=== PATIENT | female | born 1950 | race Two or more races ===

== ENCOUNTER 2020-02-25 08:05 | Inpatient (IN) | payer MEDICARE, OTHER ==
[2020-02-21 08:26] LABS: BASOPHILS % (AUTO) 1.5 % (0.0-2.0); EOSINOPHILS % (AUTO) 1.1 % (0.0-3.0); HEMATOCRIT 40.5 % (37.0-47.0); HEMOGLOBIN 13.7 G/DL (12.0-16.0); LYMPHOCYTES % (AUTO) 29.7 % (20.0-45.0); MEAN CORPUSCULAR VOLUME 84 FL (80-99); MONOCYTES % (AUTO) 5.6 % (1.0-10.0); NEUTROPHILS % (AUTO) 62.1 % (45.0-75.0); PLATELET COUNT 252 K/UL (150-450); RED BLOOD COUNT 4.81 M/UL (4.20-5.40); RED CELL DISTRIBUTION WIDTH 14.4 % (11.6-14.8); WHITE BLOOD COUNT 6.9 K/UL (4.8-10.8)
[2020-02-21 08:35] LABS: ANION GAP 7 mmol/L (5-15); BLOOD UREA NITROGEN 13 mg/dL (7-18); CALCIUM 8.6 MG/DL (8.5-10.1); CARBON DIOXIDE 28 MMOL/L (21-32); CHLORIDE 104 MMOL/L (98-107); CREATININE 0.6 MG/DL (0.55-1.30); POTASSIUM 4.9 MMOL/L (3.5-5.1); SODIUM 138 MMOL/L (136-145)
[2020-02-21 08:38] LABS: INR 0.9 (0.9-1.1)
[2020-02-21 08:40] LABS: APPEARANCE,URINE SLIGHTLY CLOUDY; BILIRUBIN, URINE NEGATIVE (NEGATIVE); COLOR,URINE PALE YELLOW; GLUCOSE, URINE (UA) NEGATIVE (NEGATIVE); KETONES,URINE NEGATIVE (NEGATIVE); LEUKOCYTE ESTERASE ,URINE 3+ (NEGATIVE); NITRITE,URINE NEGATIVE (NEGATIVE); PH,URINE 8 (4.5-8.0); PROTEIN,URINE NEGATIVE (NEGATIVE); UROBILINOGEN,URINE NORMAL MG/DL (0.0-1.0)
--- NOTE | 2020-02-21 14:21 | Diagnostic Imaging Report ---
Indication: Shortness of breath Technique: Single AP view of the chest. Comparison: None. Findings: The cardiomediastinal silhouette is within normal limits. No airspace consolidation, pneumothorax, or pleural fluid. There are degenerative changes of the shoulder joints bilaterally. There is a 3 to 4 mm rounded density projecting over the right midlung. There are multilevel discogenic degenerative changes of the visualized spine. IMPRESSION: Rounded density projecting in the right midlung which may represent calcified granuloma or may be extrapulmonary but pulmonary nodule cannot be excluded. Comparison with prior chest radiograph is or interval follow-up is recommended.
--- NOTE | 2020-02-24 11:00 | Pre-op HX & Phy Repo 2 SIG ---
DATE OF ADMISSION: 02/25/2020 SCHEDULED FOR SURGERY: 02/25/2020. HISTORY OF PRESENT ILLNESS: The patient is a 69-year-old female, insulin-dependent diabetic and hypertension, who underwent imaging for a left breast upper outer quadrant mass. The imaging revealed a 16 x 11 x 7 mm nodule at 1 o'clock 7 cm from the nipple. 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 The patient was seen by Oncology, who recommended proceeding with surgery and an additional treatments based on final pathology. PAST MEDICAL HISTORY/MEDICATIONS: Insulin, Cozaar, loratadine, Lipitor, metformin, , tramadol. ALLERGIES: Azithromycin. OPERATIONS: Appendectomy, cholecystectomy, section. REVIEW OF SYSTEMS: 4, para 4. PHYSICAL EXAMINATION: VITAL SIGNS: The patient is 5 feet 2 inches, 201 pounds. Her vital signs are stable. HEENT: Within normal limits. LUNGS: Clear. HEART: Regular rhythm. BREASTS: Large and ptotic. There is a small 1 cm nodule palpable near the periphery of the left breast between 12 and 1 o'clock. The right breast is without any mass. There is no axillary or supraclavicular lymphadenopathy. ABDOMEN: Soft. PELVIC AND RECTAL: Per primary care. EXTREMITIES: Without edema. NEUROLOGIC: Physiologic. IMPRESSION: Invasive ductal carcinoma, left breast. PLAN: Left breast partial mastectomy and left axillary lymph node biopsy. DISCUSSION: I have had a full discussion with the patient regarding the nature of her condition, the nature of the surgery, indications, alternatives, options, and risks including bleeding, infection, scarring and distortion of breast or nipple, need for additional treatment including possible additional surgery, based on final pathology, neuritis or neuralgia from axillary lymph node biopsy. The patient understands and agrees to proceed with left breast partial mastectomy and left axillary lymph node biopsy. Mando Beaulieu M.D. DR: VIVIAN/FELISA JOB#: [id number] CC:
[~2020-02-25] VITALS: Ht 157.5 cm; Wt 90.7 kg
[2020-02-25] VITALS (16 sets, daily range): BP systolic 100–157; BP diastolic 59–91
--- NOTE | 2020-02-25 08:36 | Pre-Procedure Note/Attestation ---
Pre-Procedure Note/Attestation Complete Prior to Procedure Planned Procedure: left Procedure Narrative: left breast partial mastectomy and left axillary lymph node biopsy Indications for Procedure Pre-Operative Diagnosis: ductal carcinoma left breast Attestation I attest that I discussed the nature of the procedure; its benefits; risks and complications; and alternatives (and the risks and benefits of such alternatives), prior to the procedure, with the patient (or the patient's legal customer response representative). I attest that, if there was a reasonable possibility of needing a blood transfusion, the patient (or the patient's legal customer response representative) was given the [facility] standardized written summary, pursuant to the [place] Blood Safety Act ([place] Health and Safety Code # 1645, as amended). I attest that I re-evaluated the patient just prior to the surgery and that there has been no change in the patient's H&P, except as documented below: none Mando Beaulieu MD Feb 25, 2020 08:36
--- NOTE | 2020-02-25 09:02 | Anethesia Preoperative Eval ---
Anesthesia Pre-op PMH/ROS General Date of Evaluation: Feb 25, 2020 Anesthesiologist: Huseyin ASA Score: ASA 3 Mallampati Score Class I : Soft palate, uvula, fauces, pillars visible Class II: Soft palate, uvula, fauces visible Class III: Soft palate, base of uvula visible Class IV: Only hard plate visible Mallampati Classification: Class II Surgeon: Brittnee Diagnosis: Left breast mass Surgical Procedure: Left breast partial mastectomy Anesthesia History: none Family History: no anesthesia problems Allergies: Coded Allergies: AZITHROMYCIN (Verified Allergy, Unknown, 02/21/20) Uncoded Allergies: PCN (Allergy, Unknown, Rash, 02/25/20) Medications: see eMAR Patient NPO?: Yes NPO Date: Feb 25, 2020 NPO Time: 00:00 Anesthesia Pre-op Phys. Exam Physician Exam Last Vital Signs Date Time Temp Pulse Resp B/P (MAP) Pulse Ox O2 Delivery O2 Flow Rate FiO2 02/25/20 08:41 97.1 81 18 154/73 97 Room Air Constitutional: NAD Cardiovascular: RRR Respiratory: CTA Airway Exam Mallampati Score: Class II MO: full ROM: full Teeth: intact Anesthesia Pre-op A/P Labs see chart Studies Pre-op Studies: EKG - sr Risk Assessment & Plan Assessment: ASA III Plan: GA Status Change Before Surgery: No Pre-Antibiotics Drug: Ancef 1g Given Within 1 Hr of Incision: Yes Haily Fontanez MD Feb 25, 2020 09:02
[2020-02-25] MEDS ORDERED: Bacitracin 50000 Units Vial ONE (09:04)
[2020-02-25] MEDS ORDERED: Lidocaine 1% MPF 10mg/ml 5ml ONE (09:05)
[2020-02-25] MEDS ORDERED: Metoclopramide 10mg/2ml Inj IVP PRN ×2 (09:15→11:45)
[2020-02-25] MEDS ORDERED: Ketorolac 30mg Inj IV PRN (09:15)
[2020-02-25] MEDS ORDERED: LORazepam Inj 2mg/ml 1ml IV PRN (09:15)
[2020-02-25] MEDS ORDERED: DiphenhydrAMINE 50mg/ml Inj IVP PRN (09:15)
[2020-02-25] MEDS ORDERED: Midazolam 2mg/2ml Inj IVP PRN (09:15)
[2020-02-25] MEDS ORDERED: Labetalol 5mg/ml 20ml vial IV PRN (09:15)
[2020-02-25] MEDS ORDERED: fentaNYL 100 mcg/2 mL IV PRN (09:15)
[2020-02-25] MEDS ORDERED: LR 1000ml 1,000 ML IVLG SCH (09:15)
[2020-02-25] MEDS ORDERED: Hydromorphone 0.5mg/0.5ml inj IVP PRN (09:15)
[2020-02-25] MEDS ORDERED: METFORMIN HCL500 M1 ORAL (09:36)
[2020-02-25] MEDS ORDERED: INSULIN INJ (09:36)
[2020-02-25] MEDS ORDERED: NOVOLOG100 UNITS1 SUBQ (09:36)
[2020-02-25] MEDS ORDERED: Clindamycin 600mg 50 ML IV ONE (09:40)
[2020-02-25] MEDS ORDERED: LR 1000ml ONE (10:00)
[2020-02-25] MEDS ORDERED: NS Irrig 1000ml ONE (10:00)
[2020-02-25] MEDS ORDERED: Sterile Water Irrig 1000ml IRRIG ONE (10:00)
--- NOTE | 2020-02-25 11:41 | Immediate Post-Op Evaluation ---
Immediate Post-Op Evalulation Immediate Post-Op Evalulation Procedure: left partial mastectomy Date of Evaluation: Feb 25, 2020 Time of Evaluation: 11:44 IV Fluids: 700 Blood Products: 0 Estimated Blood Loss: min Urinary Output: 0 Blood Pressure Systolic: 141 Blood Pressure Diastolic: 49 Pulse Rate: 82 Respiratory Rate: 16 O2 Sat by Pulse Oximetry: 100 Temperature (Fahrenheit): 97.2 Pain Score (1-10): 0 Nausea: No Vomiting: No Complications 0 Patient Status: awake, reacts, patent, none Hydration Status: adequate Drug: Levaquin and clinda Given Within 1 Hr of Incision: Yes Haily Fontanez MD Feb 25, 2020 11:41
--- NOTE | 2020-02-25 11:42 | Brief Operative Note ---
Immediate Post Operative Note Operative Note Pre-op Diagnosis: ductal carcinoma left breast Procedure: left breast partial mastectomy with pre-operative needle localization and left axillary lymph node biopsy Post-op Diagnosis: same Post-op Diagnosis: same as pre-op Findings: consistent w/pre-op dx studies Surgeon: haydee Anesthesiologist: emily Anesthesia: general Specimen: yes - left breast cancer and left axillary lymph node biopsy Complications: none Condition: stable Fluids: see anesthesia record Estimated Blood Loss: minimal Drains: ANGEL Implant(s) used?: No Mando Beaulieu MD Feb 25, 2020 11:42
--- NOTE | 2020-02-25 11:42 | 48 Hour Post Anesthesia Eval ---
Post Anesthesia Evaluation Procedure: left partial mastectomy Date of Evaluation: Feb 25, 2020 Airway: patent Nausea: No Vomiting: No Pain Intensity: 0 Hydration Status: adequate Cardiopulmonary Status: at baseline Mental Status/LOC: patient returned to baseline Post-Anesthesia Complications: 0 Follow-up care needed: ready to discharge Haily Fontanez MD Feb 25, 2020 11:42
[2020-02-25] MEDS ORDERED: Dextrose 50% 25ml Syringe IV PRN (11:45)
[2020-02-25] MEDS ORDERED: HYDROmorphone 1mg/ml Carpuject SUBQ PRN (11:45)
--- NOTE | 2020-02-25 15:45 | Operative Note - Dictated ---
DATE OF OPERATION: 02/25/2020 SURGEON: Mando Beaulieu MD ELA TEACHER: None. ANESTHESIOLOGIST: Haily Fontanez MD TYPE OF ANESTHESIA: General. PREOPERATIVE DIAGNOSIS: Invasive ductal carcinoma, left breast. POSTOPERATIVE DIAGNOSIS: Invasive ductal carcinoma, left breast. OPERATION PERFORMED: Left breast partial mastectomy with preoperative needle localization and left axillary lymph node biopsy. DESCRIPTION OF PROCEDURE: The patient was taken to the operating room and under general anesthesia with sequential compression device stockings in place, she was prepped and draped in usual fashion. The lesion was located near the periphery of the left breast at 1 o'clock. A curvilinear incision was made achieving hemostasis with cautery and flaps were dissected circumferentially. The wire was brought into the field. The mass was palpable and a partial mastectomy performed achieving hemostasis with cautery down to the chest wall. Pathology inspected the specimen after it was oriented with sutures anterior, medial, and superior and felt the superior margin was only within 2 mm. Additional superior tissue was resected. The field irrigated with sterile water and then antibiotic solution and hemostasis carefully achieved with cautery. The incision was closed with continuous 2-0 Vicryl deep dermal subcutaneous sutures followed by continuous 4-0 Monocryl subcuticular suture. A vertical left axillary incision was made achieving hemostasis with cautery and incising the clavipectoral fascia. Initial resection revealed only adipose tissue, but additional dissection revealed significant lymph nodes. The dissection was accomplished with the Thunderbeat vessel sealing electrosurgical device. Through a separate stab incision inferiorly, a 19 mm round Koby drain was placed into the axilla and sutured to the skin with 2-0 silk suture. The field was irrigated and hemostasis carefully achieved. The clavipectoral fascia was closed with interrupted 3-0 Vicryl. The subcutaneous tissues closed with interrupted 3-0 Vicryl and the skin closed with continuous 4-0 Monocryl subcuticular suture. Mastisol and half-inch Steri-Strips were applied to both incisions followed by dry sterile dressings. Final sponge and needle counts were correct. The patient tolerated the procedure well and left the operating room in good condition. Mando Beaulieu M.D. DR: ANJUM JOB#: [id number] CC:
[2020-02-25] MEDS: Insulin NovoLOG Flexpen S/S (Mod) SUBQ SCH ×2 (16:30→21:00)
[2020-02-25] MEDS: 1/2NS w/KCl 20mEq 1000ml 1,000 ML IV SCH (16:48)
[2020-02-25] MEDS: metFORMIN 500mg tab ORAL SCH (18:12)
[2020-02-25] MEDS: HYDROcodone/Acetamin 5/325 tab ORAL PRN (21:14)
[2020-02-25] MEDS: Clindamycin 600mg 50 ML IV SCH (22:02)
[2020-02-26] VITALS: BP 150/73
[2020-02-26] MEDS: 1/2NS w/KCl 20mEq 1000ml 1,000 ML IV SCH (02:00)
[2020-02-26] MEDS: HYDROcodone/Acetamin 5/325 tab ORAL PRN ×3 (02:35→21:37)
[2020-02-26 04:00] VITALS: BP 152/74
[2020-02-26] MEDS: Clindamycin 600mg 50 ML IV SCH (05:46)
[2020-02-26] MEDS: Insulin NovoLOG Flexpen S/S (Mod) SUBQ SCH ×4 (05:56→21:40)
[2020-02-26 08:00] VITALS: BP 159/72
--- NOTE | 2020-02-26 08:34 | General Progress Note ---
Progress Note Progress Note AVSS Taking [place] for pain. Ambulates left breast and axilla incisions clean with intact steristrips ANGEL 20cc overnight Imp: Stable Plan: Continue in-patient care, assist with ambulation Teach patient care of Mando Daniels MD Feb 26, 2020 08:33
[2020-02-26] MEDS: metFORMIN 500mg tab ORAL SCH ×2 (09:00→17:44)
[2020-02-26 11:45] LABS: APPEARANCE,URINE CLEAR; BILIRUBIN, URINE NEGATIVE (NEGATIVE); COLOR,URINE PALE YELLOW; GLUCOSE, URINE (UA) NEGATIVE (NEGATIVE); KETONES,URINE NEGATIVE (NEGATIVE); LEUKOCYTE ESTERASE ,URINE NEGATIVE (NEGATIVE); NITRITE,URINE NEGATIVE (NEGATIVE); PH,URINE 6.5 (4.5-8.0); PROTEIN,URINE NEGATIVE (NEGATIVE); UROBILINOGEN,URINE NORMAL MG/DL (0.0-1.0)
[2020-02-26 12:00] VITALS: BP 157/67
[2020-02-26 16:00] VITALS: BP 146/72
[2020-02-26] MEDS ORDERED: Tubing IV Secondary IV ONE (16:03)
[2020-02-26] MEDS ORDERED: COZAAR50 MG ORAL (17:53)
[2020-02-26] MEDS ORDERED: TOUJEO SOL300 UNIT/1 SQ (17:55)
[2020-02-26 20:00] VITALS: BP 108/45
[2020-02-27] VITALS: BP 121/69
[2020-02-27 04:00] VITALS: BP 143/76
[2020-02-27] MEDS: Insulin NovoLOG Flexpen S/S (Mod) SUBQ SCH ×2 (06:04→11:30)
[2020-02-27 08:00] VITALS: BP 146/79
[2020-02-27] MEDS: metFORMIN 500mg tab ORAL SCH (09:22)
--- NOTE | 2020-02-27 10:40 | General Progress Note ---
Progress Note Progress Note AVSS Able to ambulate independently and learned care of ANGEL drain left breast and axilla healing nicely ANGEL 30cc Repeat U/A shows no sign of UTI Imp: Stable Plan: discharge with ANGEL drain in place rx [place] 5/325 #20 supplies/instructions/limitations provided/discussed f/u office 03/03 Mando Beaulieu MD Feb 27, 2020 10:40
--- NOTE | 2020-03-02 11:33 | Discharge Summary ---
Discharge Summary Hospital Course Date of Admission Feb 25, 2020 at 14:09 Date of Discharge Feb 27, 2020 at 12:05 Admitting Diagnosis Invasive ductal carcinoma, left breast Reason for Hospitalization: elective surgery HPI 69-year-old female, with PMH of insulin-dependent diabetes and hypertension, underwent imaging for a left breast upper outer quadrant mass, which revealed a 16 x 11 x 7 mm nodule at 1 o'clock 7 cm from the nipple. 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 The patient was seen by Oncology, who recommended proceeding with surgery and an additional treatments based on final pathology. josé was admitted for elective surgery Procedures s/p 02/[address] Beaulieu Left breast partial mastectomy with preoperative needle localization and left axillary lymph node biopsy. Hospital Course status post surgery course of recovery was uneventful initially IV fluids s/p perioperative antibiotic left breast and axilla incisions clean with intact Steri-Strips, healing output from ANGEL was closely monitored patient was taught care of ANGEL drain, and learned a proper way to do it pain management addressed ; and pain was controlled remained hemodynamically stable ambulated DVT prophylaxis with SCD provided use of incentive spirometry was encouraged while in the bed tolerated diet , IV fluids discontinued GI prophylaxis provided antiemetics were on board as needed blood pressure was managed with current regimen and remained stable blood sugar was closely monitored and managed with metformin, sliding scale of insulin was on board as needed urinalysis revealed +3 leukocyte esterase and borderline pyuria , no bacteria patient started on empiric antibiotic urine culture revealed mixed gram positive organisms; patient remained afebrile antibiotics stopped voided freely patient was stable for discharge home with a ANGEL drain in place prescription for [place] 5/325 #20 provided supplies/instruction/limitation provided/discussed follow-up in the office 03/03 FINAL DIAGNOSES Invasive ductal carcinoma, left breast. s/p 02/24 Left breast partial mastectomy with preoperative needle localization and left axillary lymph node biopsy. HTN DM Discharge Medications Continued Medications: Insulin Aspart (Novolog Flexpen) 100 Unit/1 Ml Insuln.pen 10 SUBQ BIDAC for Diabetes Mellitus, EA Insulin Glargine,Hum.rec.anlog (Toujeo Solostar) 300 Unit/1 Ml Insuln.pen 55 UNIT SQ HS for DM, EA Losartan Potassium* (Cozaar*) 50 Mg Tablet 50 MG ORAL DAILY for HTN, TAB Metformin Hcl* (Metformin Hcl*) 500 Mg Tablet 500 MG ORAL TWICE A DAY for Diabetes Mellitus, TAB Discharge Condition Upon Discharge: stable Discharge Vital Signs Last Vital Signs Date Time Temp Pulse Resp B/P (MAP) Pulse Ox O2 Delivery O2 Flow Rate FiO2 02/27/20 09:00 Room Air 02/27/20 08:00 97.9 72 19 146/79 (101) 98 02/25/20 14:03 3.0 Discharge Disposition Patient was discharged home Discharge Instructions Discharge Instructions Special Instructions I have been assigned to complete a D/C Summary on this account. I was not involved in the patient management Promise Maynard NP Mar 02, 2020 11:33
== END 2020-02-27 12:05 | disposition home or self-care (01) | DRG 581 ==
LOC: SUR 08:05 → 3E 14:09
PROC: 07B60ZX Excision of Left Axillary Lymphatic, Open Approach, Diagnostic (ICD-10-PCS; principal; 2020-02-25 09:30)
PROC: 0HBU0ZZ Excision of Left Breast, Open Approach (ICD-10-PCS; principal; 2020-02-25 09:30)
DX: C50.412 Malignant neoplasm of upper-outer quadrant of left female breast (principal); E11.9 Type 2 diabetes mellitus without complications; I10 Essential (primary) hypertension; Z17.0 Estrogen receptor positive status [ER+]; Z88.1 Allergy status to other antibiotic agents
CPT/HCPCS: 36415; 71045; 80048; 81001; 82962; 85025; 85610; 85730; 87086; 93005; 94003; 94150; J1815; J2250; J2405; S0077